=== PATIENT | male | born 1975 | race Asian ===

== ENCOUNTER 2019-04-14 11:06 | Day surgery (SDC) | payer BC | END 2019-04-14 14:30 | disposition home or self-care (01) | LOC: OR 11:06 | PROC: 0DB68ZZ Excision of Stomach, Via Natural or Artificial Opening Endoscopic (ICD-10-PCS; principal; 2019-04-14) | PROC: 0DB88ZZ Excision of Small Intestine, Via Natural or Artificial Opening Endoscopic (ICD-10-PCS; 2019-04-14) | DX: K29.50 Unspecified chronic gastritis without bleeding (principal); B96.81 Helicobacter pylori [H. pylori] as the cause of diseases classified elsewhere; K21.0 Gastro-esophageal reflux disease with esophagitis; K22.10 Ulcer of esophagus without bleeding; R10.12 Left upper quadrant pain; R10.13 Epigastric pain | CPT/HCPCS: J2001; J2250; J2405; J2704 ==

== ENCOUNTER 2019-12-29 09:49 | Outpatient (CLI) | payer BC | END 2019-12-29 20:17 | disposition home or self-care (01) | LOC: MAMMO 09:49 | DX: N64.4 Mastodynia (principal) | CPT/HCPCS: G0279 ==

== ENCOUNTER 2021-07-06 21:25 | Emergency (ER) | payer BC ==
[~2021-07-06] VITALS: Ht 160 cm; Wt 93.9 kg
[2021-07-06 22:56] LABS: PLATELET COUNT 59 K/uL (142-355)
[2021-07-06 23:11] LABS: POTASSIUM 3.7 mmol/L (3.6-5.2)
[2021-07-07 03:45] VITALS: BP 120/72; TEMP 98.5
== END 2021-07-07 03:45 | disposition home or self-care (01) ==
LOC: ED 21:25
PROVIDERS: Hospitalist
DX: J06.9 Acute upper respiratory infection, unspecified (principal); U07.1 COVID-19; E86.0 Dehydration; R11.2 Nausea with vomiting, unspecified
CPT/HCPCS: 36415; 80053; 81000; 83690; 85027; 87635; 96360; 96375; 99284; J2405; Q9963; U0003